=== PATIENT | male | born 1990 | race Caucasian/White ===

== ENCOUNTER 2017-04-05 16:20 | Emergency (ER) | payer OTHER ==
[~2017-04-05] VITALS: Ht 177.8 cm; Wt 81.8 kg
[2017-04-05 16:22] VITALS: BP 133/84; TEMP 97.2
[2017-04-05] MEDS ORDERED: VALTREX 50500 MG/TAB (16:24)
[2017-04-05] MEDS ORDERED: WELLBUTRIN 100100 MG (16:24)
[2017-04-05] MEDS ORDERED: NORCO 325 MG-51 TAB PO (17:19)
[2017-04-05] MEDS ORDERED: ILOTYCIN5 MG/GM OP (17:19)
[2017-04-05 17:32] VITALS: PULSE 88
== END 2017-04-05 17:41 | disposition home or self-care (01) ==
LOC: COL.ER 16:20
DX: S05.02XA Injury of conjunctiva and corneal abrasion without foreign body, left eye, initial encounter (principal); W22.8XXA Striking against or struck by other objects, initial encounter; Y92.009 Unspecified place in unspecified non-institutional (private) residence as the place of occurrence of the external cause